=== PATIENT | female | born 1945 | race Caucasian/White ===

== ENCOUNTER 2019-07-23 14:21 | Outpatient (CLI) | payer MEDICARE, MEDICAID ==
[~2019-07-23 14:21] MED LIST: ASPIR-LOW81 MG ORAL; ATORVASTATIN CA10 MG ORAL; FISH OIL CAP1000 MG ORAL; VITAMIN D-32000 UNI1 PO
[2019-07-23 15:24] VITALS: BP 122/77
--- NOTE | 2019-07-23 18:30 | Consultation ---
DATE OF CONSULTATION: 07/23/2019 CONSULTING PHYSICIAN: Boom Smith M.D. REASON FOR REFERRAL: Screening colonoscopy. HISTORY OF PRESENT ILLNESS: This is a 73-year-old female known to me from 5 years ago when she had a colonoscopy. She is here back for colonoscopy. PAST MEDICAL HISTORY: Hypercholesterolemia. ALLERGIES: No known drug allergies. MEDICATIONS: Please see medication reconciliation list. SOCIAL HISTORY: The patient is . Denies any tobacco, alcohol, or drug abuse. FAMILY HISTORY: Noncontributory. REVIEW OF SYSTEMS: A 10-point review of systems was performed and pertinent positives in HPI. PHYSICAL EXAMINATION: VITAL SIGNS: Temperature 97.8, blood pressure 122/77, pulse 69, respirations 20. HEENT: Normocephalic, atraumatic. Sclerae anicteric. NECK: Supple. No evidence of obvious lymphadenopathy. CARDIOVASCULAR: Regular rate and rhythm. Plus S1 and S2. No obvious murmur. LUNGS: Clear to auscultation bilaterally. ABDOMEN: Positive bowel sounds. Soft and nontender. No rebound. No guarding. No peritoneal sign. EXTREMITIES: No cyanosis, no clubbing, no edema. ASSESSMENT AND PLAN: This is a 73-year-old female, here for screening colonoscopy evaluation. Plan, the patient was given the instruction for colonoscopy. Risks and benefits of procedure were explained to her. She is scheduled for next week for colonoscopy. Boom Smith M.D. DR: TERRY JOB#: [id number] CC:
== END 2019-07-23 16:00 | disposition home or self-care (01) ==
LOC: PAN 14:21
DX: Z01.818 Encounter for other preprocedural examination (principal); E78.00 Pure hypercholesterolemia, unspecified